=== PATIENT | female | born 1975 | race Caucasian/White ===

== ENCOUNTER → 2025-06-14 | Outpatient (CLI) | payer OTHER ==
[~2025-06-14] MED LIST: LEVSOD100 PO; MULVITMINE; OXYACE5T PO; PEROXITINE
[2025-06-14 11:13] LABS: Campylobacter Sp Not Detected (NOT DETECT); E. Coli O157 Not Detected (NOT DETECT); Enteroaggregative E. coli-EAEC Not Detected (NOT DETECT); Enteropathogenic E. coli-EPEC Not Detected (NOT DETECT); Enterotoxigenic E. coli-ETEC Not Detected (NOT DETECT); Salmonella Sp Not Detected (NOT DETECT); Shiga Toxin-prod E. coli-STEC Not Detected (NOT DETECT); Shigella/Enteroin E. coli-EIEC Not Detected (NOT DETECT); Vibrio Sp Not Detected (NOT DETECT)
== END ==
LOC: LAB 08:27 → LAB SHORT 08:27
PROVIDERS: Legal Medicine
DX: R19.7 Diarrhea, unspecified (principal)
CPT/HCPCS: 87507